=== PATIENT | male | born 1995 | race Caucasian/White ===

== ENCOUNTER 2022-06-28 16:17 | Emergency (ER) | payer OTHER ==
[~2022-06-28] VITALS: Wt 98.0 kg
[2022-06-28 16:58] LABS: BASO % 0.2 % (0.0-1.0); EOS # 0.3 10*3/uL (0.0-0.4); HEMATOCRIT 45.1 % (42.0-52.0); LYMPH # 2.2 10*3/uL (1.3-4.4); LYMPH % 20.5 % (27.0-41.0); MEAN CELL VOLUME 87.7 fl (80.0-94.0); MEAN CORPUSCULAR HGB 30.2 pg (27.0-31.0); MEAN CORPUSCULAR HGB CONC 34.4 g/dl (33.0-37.0); MEAN PLATELET VOLUME 9.4 fl (9.6-12.3); MONO # 0.6 10*3/uL (0.1-1.0); MONO % 5.5 % (3.0-9.0); NEUT # 7.7 10*3/uL (2.3-7.9); NEUT % 70.4 % (47.0-73.0); PLATELET COUNT AUTOMATED 280 10*3/uL (130-400); RED BLOOD COUNT 5.14 10*6/uL (4.50-5.90); RED CELL DISTRI WIDTH 12.5 % (0-14.5); WHITE BLOOD COUNT 10.9 10*3/uL (4.8-10.8)
[2022-06-28 17:16] LABS: ALKALINE PHOSPHATASE 70 U/L (45-117); BUN 13 mg/dl (7-24); CHLORIDE 106 mmol/L (98-107); CREATININE 0.87 mg/dL (0.70-1.30); POTASSIUM 4.4 mmol/L (3.5-5.1); SGOT/AST 23 IU/L (3-35); SGPT/ALT 32 U/L (12-78); SODIUM 138 mmol/L (136-145); TOTAL PROTEIN 7.5 gm/dL (6.4-8.2)
[2022-06-28 17:26] LABS: BILIRUBIN Negative (Negative); BLOOD Negative (Negative); CLARITY Clear (Clear); COLOR Dark Yellow (Yellow); GLUCOSE Negative (Negative); KETONE Negative (Negative); LEUKO ESTERASE Negative (Negative); NITRITE Negative (Negative); PH 6.5 (4.5-8.0); UROBILINOGEN 0.2 E.U./dl (0.0-1.0)
[2022-06-28 17:46] LABS: EPITHELIAL CELLS 0-2; WBC 0-2 wbc/hpf (0-5)
== END 2022-06-28 20:12 | disposition home or self-care (01) ==
LOC: ED 16:17
PROVIDERS: Emergency Medicine
DX: R07.89 Other chest pain (principal); Z88.2 Allergy status to sulfonamides

== ENCOUNTER → 2022-08-27 | Outpatient (CLI) | payer OTHER ==
[2022-08-27 19:23] LABS: FREE T4 0.92 ng/dl (0.76-1.46)
[2022-08-27 19:28] LABS: THYROID STIM HORMONE (HS) 1.67 uIU/ml (0.358-4.75)
== END ==
LOC: LAB 18:21
PROVIDERS: ATTEND Nurse Practitioner Primary Care
DX: R07.89 Other chest pain (principal); R06.89 Other abnormalities of breathing; I49.9 Cardiac arrhythmia, unspecified; Z13.29 Encounter for screening for other suspected endocrine disorder

== ENCOUNTER → 2022-10-31 | Outpatient (CLI) | payer OTHER | END | disposition home or self-care (01) | LOC: CT 10-29 14:00 | PROVIDERS: ATTEND Family Medicine | DX: R06.89 Other abnormalities of breathing (principal); R06.02 Shortness of breath ==

== ENCOUNTER 2022-11-18 14:54 | Emergency (ER) | payer OTHER ==
[~2022-11-18] VITALS: Wt 99.8 kg
[2022-11-18 18:16] LABS: BASO % 0.3 % (0.0-1.0); EOS # 0.4 10*3/uL (0.0-0.4); EOS % 3.7 % (1.0-4.0); LYMPH # 3.5 10*3/uL (1.3-4.4); LYMPH % 33.4 % (27.0-41.0); MEAN CELL VOLUME 85.4 fl (80.0-94.0); MEAN CORPUSCULAR HGB 29.5 pg (27.0-31.0); MEAN CORPUSCULAR HGB CONC 34.5 g/dl (33.0-37.0); MONO # 0.6 10*3/uL (0.1-1.0); MONO % 5.8 % (3.0-9.0); NEUT # 5.8 10*3/uL (2.3-7.9); NEUT % 56.4 % (47.0-73.0); PLATELET COUNT AUTOMATED 260 10*3/uL (130-400); RED BLOOD COUNT 5.15 10*6/uL (4.50-5.90); WHITE BLOOD COUNT 10.3 10*3/uL (4.8-10.8)
[2022-11-18 18:31] LABS: ALKALINE PHOSPHATASE 80 U/L (46-116); BUN 8 mg/dl (9-23); CHLORIDE 105 mmol/L (98-107); CREATININE 0.73 mg/dL (0.70-1.30); SGPT/ALT 44 U/L (10-49); TOTAL PROTEIN 7.2 gm/dL (6.0-8.0)
== END 2022-11-18 19:19 | disposition home or self-care (01) ==
LOC: ED 14:54
PROVIDERS: Nurse Practitioner Family
DX: R16.1 Splenomegaly, not elsewhere classified (principal); Z88.2 Allergy status to sulfonamides

== ENCOUNTER → 2022-12-06 | Outpatient (CLI) | payer OTHER | END | disposition home or self-care (01) | LOC: US 08:30 | PROVIDERS: ATTEND Nurse Practitioner Family | DX: R16.1 Splenomegaly, not elsewhere classified (principal); N28.1 Cyst of kidney, acquired ==

== ENCOUNTER 2023-04-15 18:22 | Emergency (ER) | payer OTHER ==
[~2023-04-15] VITALS: Ht 185.4 cm; Wt 103.9 kg
[2023-04-15 19:18] LABS: BASO % 0.2 % (0.0-1.0); EOS # 0.3 10*3/uL (0.0-0.4); EOS % 2.8 % (1.0-4.0); HEMATOCRIT 45.5 % (42.0-52.0); LYMPH # 3.4 10*3/uL (1.3-4.4); LYMPH % 35.7 % (27.0-41.0); MEAN CELL VOLUME 87.3 fl (80.0-94.0); MEAN CORPUSCULAR HGB 29.9 pg (27.0-31.0); MEAN CORPUSCULAR HGB CONC 34.3 g/dl (33.0-37.0); MEAN PLATELET VOLUME 9.5 fl (9.6-12.3); MONO # 0.5 10*3/uL (0.1-1.0); MONO % 5.6 % (3.0-9.0); NEUT # 5.3 10*3/uL (2.3-7.9); NEUT % 55.5 % (47.0-73.0); PLATELET COUNT AUTOMATED 274 10*3/uL (130-400); RED BLOOD COUNT 5.21 10*6/uL (4.50-5.90); RED CELL DISTRI WIDTH 12.7 % (0-14.5); WHITE BLOOD COUNT 9.6 10*3/uL (4.8-10.8)
[2023-04-15 19:43] LABS: ALKALINE PHOSPHATASE 62 U/L (46-116); BUN 9 mg/dl (9-23); CHLORIDE 105 mmol/L (98-107); POTASSIUM 3.9 mmol/L (3.4-5.1); SGPT/ALT 41 U/L (10-49); THYROID STIM HORMONE (HS) 2.078 uIU/ml (0.550-4.780); TOTAL PROTEIN 7.4 gm/dL (6.0-8.0)
== END 2023-04-15 21:39 | disposition home or self-care (01) ==
LOC: ED 18:22
PROVIDERS: Nurse Practitioner Family
DX: R07.89 Other chest pain (principal); Z88.2 Allergy status to sulfonamides; R06.02 Shortness of breath; M25.512 Pain in left shoulder

== ENCOUNTER → 2023-12-24 | Outpatient (CLI) | payer OTHER | END | disposition home or self-care (01) | LOC: CT 00:38 | PROVIDERS: ATTEND Nurse Practitioner Family | DX: N28.1 Cyst of kidney, acquired (principal); K57.30 Diverticulosis of large intestine without perforation or abscess without bleeding; R10.9 Unspecified abdominal pain ==

== ENCOUNTER → 2024-11-22 | Outpatient (CLI) | payer OTHER | END | disposition home or self-care (01) | LOC: RAD 12:10 | PROVIDERS: ATTEND Family Medicine | DX: M25.561 Pain in right knee (principal) ==